=== PATIENT | male | born 1945 | race Caucasian/White ===

== ENCOUNTER → 2020-11-10 15:37 | Outpatient (CLI) | payer MEDICARE, OTHER, SELFPAY ==
[2020-11-10] MEDS: COVID-19 VACC #1, MRNA(MOD) 100 MCG/0.5 ML VIAL IM (15:43)
== END ==
PROVIDERS: Visit Provider Internal Medicine
DX: Z23 Encounter for immunization (principal)
CPT/HCPCS: 0011A; 91301

== ENCOUNTER → 2020-12-08 15:45 | Outpatient (CLI) | payer MEDICARE, OTHER, SELFPAY ==
[2020-12-08] MEDS: COVID-19 VACC #2, MRNA(MOD) 100 MCG/0.5 ML VIAL IM (15:59)
== END ==
PROVIDERS: Visit Provider Internal Medicine
DX: Z23 Encounter for immunization (principal)
CPT/HCPCS: 0012A; 91301

== ENCOUNTER → 2021-11-27 12:41 | Outpatient (CLI) | payer MEDICARE, OTHER, SELFPAY ==
--- NOTE | 2021-11-27 12:48 | DI.RAD.S_ITS ---
PROCEDURE: XR ANKLE LT MIN 3V INDICATIONS: PAIN TECHNIQUE: 3 views of the ankle were acquired. COMPARISON: None. FINDINGS: Bones: No fractures or dislocations. Ankle mortise is normally aligned. No suspicious bony lesions. Periarticular osteophyte formation at the tibiotalar, talonavicular, and navicular cuneiform joints. Soft tissues: No tibiotalar joint effusion. Achilles tendon appears normal. IMPRESSION: Osteoarthritis. No acute fracture. No osseous lesion. If symptoms and/or clinical suspicion for pathology persist, further assessment with repeat, or advanced imaging (e.g., CT, MRI, or bone scan) may be helpful for further assessment. Dictated by: Raf Vela M.D. on 11/27/2021 at 14:13 Approved by: Raf Vela M.D. on 11/27/2021 at 14:13
--- NOTE | 2021-11-27 12:48 | DI.RAD.S_ITS ---
PROCEDURE: XR FOOT RT MIN 3V INDICATIONS: FOOT PAIN TECHNIQUE: 3 views of the foot were acquired. COMPARISON: [facility], CR, XR FOOT 3+ VIEWS RIGHT, 03/30/2019, 11:04. [facility], CR, XR ANKLE RT MIN 3V, 11/27/2021, 12:44. FINDINGS: Bones: No acute fractures or dislocations. No suspicious bony lesions. Pes planus. There is ossification of the distal tibial fibular syndesmosis. Idaj-nl-favsbmut degenerative joint disease at the tailor navicular joint, navicular cuneiform joint, 1st metatarsophalangeal joint and multiple interphalangeal joint. Calcaneal spurring. Bipartite medial sesamoid. Soft tissues: No tibiotalar joint effusion. Achilles tendon appears normal. IMPRESSION: 1. Pes planus. 2. Srti-le-ugtvixwq degenerative joint disease. 3. Calcaneal spurring. Dictated by: Risa Lyon M.D. on 11/27/2021 at 16:19 Approved by: Risa Lyon M.D. on 11/27/2021 at 16:23
--- NOTE | 2021-11-27 12:48 | DI.RAD.S_ITS ---
PROCEDURE: XR ANKLE RT MIN 3V INDICATIONS: PAIN TECHNIQUE: 3 views of the ankle were acquired. COMPARISON: [facility], CR, XR ANKLE LT MIN 3V, 11/27/2021, 12:44. FINDINGS: Bones: No fractures or dislocations. Ankle mortise is normally aligned. No suspicious bony lesions. Periarticular osteophyte formation at the tibiotalar, talonavicular, and navicular cuneiform joints. Soft tissues: No tibiotalar joint effusion. Achilles tendon appears normal. IMPRESSION: Osteoarthritis. No acute fracture. No osseous lesion. If symptoms and/or clinical suspicion for pathology persist, further assessment with repeat, or advanced imaging (e.g., CT, MRI, or bone scan) may be helpful for further assessment. Dictated by: Raf Vela M.D. on 11/27/2021 at 14:15 Approved by: Raf Vela M.D. on 11/27/2021 at 14:15
--- NOTE | 2021-11-27 12:48 | DI.RAD.S_ITS ---
PROCEDURE: XR FOOT LT MIN 3V INDICATIONS: FOOT PAIN TECHNIQUE: 3 views of the foot were acquired. COMPARISON: [facility], , FOOT 3V LEFT, 06/16/2013, 13:22. FINDINGS: Bones: Pes planus. Calcaneal enthesopathy. No acute, displaced fracture. Mild to moderate arthrosis of the midfoot and hallux sesamoids. Soft tissues: Small tibiotalar joint effusion. IMPRESSION: No acute osseous abnormality. Dictated by: Rafael Perdue M.D. on 11/27/2021 at 14:21 Approved by: Rafael Perdue M.D. on 11/27/2021 at 14:23
== END ==
PROVIDERS: Referring Provider Internal Medicine; Visit Provider Internal Medicine
DX: M19.071 Primary osteoarthritis, right ankle and foot (principal); M19.072 Primary osteoarthritis, left ankle and foot; M77.31 Calcaneal spur, right foot; M77.32 Calcaneal spur, left foot; M21.42 Flat foot [pes planus] (acquired), left foot; M21.41 Flat foot [pes planus] (acquired), right foot; M79.671 Pain in right foot; M79.672 Pain in left foot
CPT/HCPCS: 73610; 73630

== ENCOUNTER 2022-05-12 09:14 | Emergency (ER) | payer MEDICARE, OTHER, SELFPAY ==
[2022-05-12] VITALS (64 sets, daily range): BP systolic 134–194; BP diastolic 64–115; PULSE 60–87; RESP 12–24; TEMP 36.5–36.6; O2SAT 95–100; BMI 35.6
--- NOTE | 2022-05-12 09:26 | DI.RAD.S_ITS ---
PROCEDURE: XR CHEST 1V INDICATIONS: chest pain TECHNIQUE: One view of the chest was acquired. COMPARISON: [facility], CHEST 2 VIEW, 12/17/2012, 10:54. [facility], CHEST 2 VIEW, 12/13/2013, 12:30. FINDINGS: Surgical changes and devices: None. Lungs and pleura: An incomplete inspiratory result is noted, causing a crowded appearance to the lung markings. No focal infiltrates are seen. No pneumothorax or significant pleural effusions are seen. Mediastinum: Mediastinal contours appear normal. Heart size is mildly enlarged. Bones and chest wall: No suspicious bony lesions. Age-appropriate bony degenerative changes are seen. Overlying soft tissues appear unremarkable. IMPRESSION: There is mild cardiomegaly. No significant pulmonary abnormality is seen. Dictated by: Zia Lindsey M.D. on 05/12/2022 at 9:03 Approved by: Zia Lindsey M.D. on 05/12/2022 at 9:03
[2022-05-12 09:36] LABS: Add Manual Diff / Slide Review NO; Basophils Absolute Auto 0 /uL (0-100); Basophils Percent Auto 0.5 % (0-2); Eosinophils Absolute Auto 100 /uL (0-450); Eosinophils Percent Auto 1.2 % (2-4); Hematocrit 45.1 % (41-53); Hemoglobin 15.3 g/dL (13.5-17.5); Lymphocytes Absolute Auto 2700 /uL (1100-4500); Lymphocytes Percent Auto 32.3 % (25-40); Mean Corpuscular HGB Conc 33.9 % (30-36); Mean Corpuscular Hemoglobin 34.2 PG (26-34); Mean Corpuscular Volume 100.7 fL (80-100); Monocytes Absolute Auto 900 /uL (0-900); Monocytes Percent Auto 10.4 % (3-14); Neutrophils Absolute Auto 4700 /uL (1500-7000); Neutrophils Percent Auto 55.6 % (50-75); Platelet Count 234 X10^3/uL (150-400); Red Blood Cell Count 4.47 X10^6/uL (4.5-5.9); Red Cell Distribution Width 12.9 % (11.6-14.8); White Blood Cell Count 8.4 X10^3/uL (4.5-11.0)
[2022-05-12 09:40] LABS: INR 1.1 (0.9-1.3); Prothrombin Time 11.8 SECONDS (10.1-12.7)
[2022-05-12 09:42] LABS: PTT Partial Thromboplastin Tim 35 SECONDS (26.4-36.2)
[2022-05-12 09:44] LABS: COVID19 -Nasal RAPID Negative (Negative)
[2022-05-12] MEDS: ASPIRIN 81 MG CHEW TAB 324 MG PO (09:44)
[2022-05-12 09:45] LABS: Alanine Aminotransferase 31 IU/L (<50); Albumin 4.6 g/dL (3.5-5.0); Albumin Globulin Ratio 1.6 (1.0-2.8); Alkaline Phosphatase 85 U/L (38-126); Aspartate Aminotransferase 27 IU/L (17-59); BUN Creatinine Ratio 20.2 (6-22); Bilirubin Total 0.9 mg/dL (0.2-1.3); Blood Urea Nitrogen 17 mg/dL (9-20); Calcium 9.1 mg/dL (8.4-10.2); Carbon Dioxide 21 mmol/L (22-32); Chloride 107 mmol/L (98-107); Creatine Kinase 61 U/L (55-170); Estimated Glomerular Filt Rate > 60 mL/min (>60); Globulin 2.8 g/dL (1.7-4.1); Glucose 174 mg/dL (80-110); HEMOLYSIS < 15 (0-50); Lipase 124 U/L (23-300); Potassium 3.9 mmol/L (3.4-5.1); Sodium 139 mmol/L (137-145); Total Protein 7.4 g/dL (6.3-8.2)
[2022-05-12 09:57] LABS: NT-proBNP (BNP-Adult 18+) 155 pg/mL (<125); Troponin I 0.105 ng/mL (0.01-0.034)
--- NOTE | 2022-05-12 10:06 | ED_ITS ---
HPI - Chest Pain <Kita Neumann DO - Last Filed: 05/13/22 08:31> General Chief Complaint: Chest Pain Stated Complaint: chest pain 20 mins Time Seen by Provider: 05/12/22 09:25 Source: patient Mode of arrival: Ambulatory Limitations: no limitations History of Present Illness HPI narrative: Patient is a 76-year-old male with no past medical history presenting today with chest discomfort. He said he was sitting when he developed heaviness on the left side of his chest he got extremely diaphoretic. Discomfort lasted for about 30 minutes. He realized in the car over here that if he put both hands on top of his head his chest pain went away immediately. He is now chest pain- free. He says he had a is physical exam is 9 months well as he takes no medications. No known coronary artery disease. He was not short of breath. Related Data Previous Rx's Medication Instructions Recorded mupirocin 2 % topical ointment 1 applic topical TID #15 grams 09/24/21 Allergies Allergy/AdvReac Type Severity Reaction Status Date / Time No Known Drug Allergies Allergy Verified 05/12/22 10:26 Review of Systems <Kita Neumann DO - Last Filed: 05/13/22 08:31> Review of Systems Narrative: GENERAL: Denies chills, fatigue, malaise, fever, sweats, travel HEENT: Denies sinus pain, ear pain, sore throat, difficulty swallowing, neck pain RESPIRATORY: Denies dyspnea, cough, wheezing, hemoptysis, sputum. CARDIOVASCULAR: See HPI GASTROINTESTINAL: Denies nausea, vomiting, abdominal pain, diarrhea, constipation, melena. : Denies dysuria, frequency, incontinence, hematuria, urinary retention, flank pain. MUSCULOSKELETAL: Denies weakness, joint pain, or bony pain SKIN: No rash, no erythema, no pruritus NEUROLOGIC: Denies weakness, dizziness, headache, numbness, change in speech, confusion PSYCHIATRIC: No concerning psychosocial issues. 12 point review of systems is negative except for those stated above and HPI Patient History <Kita Neumann DO - Last Filed: 05/13/22 08:31> Social History Smoking Status: Never smoker alcohol intake: current Smoking Status: Never smoker alcohol intake frequency: 0-2 drinks per day Alcohol type: wine Substance Use Type: does not use Exam <Kita Neumann DO - Last Filed: 05/13/22 08:31> Initial Vital Signs Initial Vital Signs: Vital Signs Temperature 97.7 F 05/12/22 09:14 Pulse Rate 82 05/12/22 09:14 Respiratory Rate 20 05/12/22 09:14 Blood Pressure 184/89 H 05/12/22 09:14 Pulse Oximetry 97 05/12/22 09:14 Oxygen Delivery Method 05/12/22 09:14 GENERAL: Alert pleasant 76-year-old male and in no acute distress. HEENT: Head atraumatic,EOMI, pupils reactive, face symmetric, moist mucous membranes CARDIOVASCULAR: Regular rate and rhythm without murmurs, rubs or gallops. RESPIRATORY: Breath sounds equal bilaterally, no wheezes rales or rhonchi. ABDOMEN: Soft, nontender. Normoactive bowel sounds all 4 quadrants. No guarding or rebound. EXTREMITIES: Normal range of motion, no clubbing or edema. Neurovascularly intact NEUROLOGICAL: Alert and oriented x4.Normal gait and speech. SKIN: Warm, dry, no laceration, no petechiae, no rashes or lesions. <Isreal Silva DO - Last Filed: 05/12/22 22:51> Initial Vital Signs Initial Vital Signs: Vital Signs Temperature 97.7 F 05/12/22 09:14 Pulse Rate 82 05/12/22 09:14 Respiratory Rate 20 05/12/22 09:14 Blood Pressure 184/89 H 05/12/22 09:14 Pulse Oximetry 97 05/12/22 09:14 Oxygen Delivery Method 05/12/22 09:14 Course <DO Genevieve Carrasco Last Filed: 05/13/22 08:31> Orders Ordered: Discontinued Medications Aspirin (Aspirin 81 Mg Chew Tab) 324 mg PO NOW ONE Stop: 05/12/22 09:34 Last Admin: 05/12/22 09:44 Dose: 324 mg Documented By: BILL Aspirin (Aspirin 325 Mg Tablet) 325 mg PO DAILY [facility] Atorvastatin Calcium (Atorvastatin 20 Mg Tablet) 80 mg PO NOW ONE Stop: 05/12/22 12:22 Last Admin: 05/12/22 12:33 Dose: 80 mg Documented By: BILL Heparin Sodium (Porcine) (Heparin 5,000 Unit/Ml Vial) 5,000 unit IV NOW ONE Stop: 05/12/22 12:11 Last Admin: 05/12/22 12:25 Dose: 5,000 unit Documented By: BILL Heparin Sodium/Dextrose (Heparin Drip) 25,000 unit in 500 mls @ 20 mls/hr IV CONT [facility]; Protocol Last Titration: 05/12/22 23:34 Dose: 0 units/hr, 0 mls/hr Documented By: Admin: 05/12/22 12:25 Dose: 1,000 units/hr, 20 mls/hr Documented By: BILL Metoprolol Succinate (Metoprolol Er 25 Mg Tablet) 25 mg PO BID [facility] Last Admin: 05/12/22 21:01 Dose: 25 mg Documented By: DAKSHA Nitroglycerin (Nitroglycerin 0.4 Mg Sl Tab) 0.4 mg SL [id number] PRN PRN Reason: Chest Pain Vital Signs Vital signs: Vital Signs - 8 hr 05/12/22 14:45 05/12/22 14:45 05/12/22 15:00 Temperature Pulse Rate 64 Respiratory Rate 19 Blood Pressure 184/85 H 152/84 H Pulse Oximetry 98 Oxygen Delivery Method 05/12/22 15:00 05/12/22 15:16 05/12/22 15:16 Temperature Pulse Rate 67 70 Respiratory Rate 12 20 Blood Pressure 166/94 H Pulse Oximetry 98 98 Oxygen Delivery Method 05/12/22 15:30 05/12/22 15:30 05/12/22 15:45 Temperature Pulse Rate 72 72 Respiratory Rate 24 23 Blood Pressure 167/84 H Pulse Oximetry 98 98 Oxygen Delivery Method 05/12/22 15:45 05/12/22 16:00 05/12/22 16:00 Temperature Pulse Rate 69 Respiratory Rate 20 Blood Pressure 170/89 H 166/81 H Pulse Oximetry 97 Oxygen Delivery Method 05/12/22 16:15 05/12/22 16:15 05/12/22 16:30 Temperature Pulse Rate 66 71 Respiratory Rate 18 23 Blood Pressure 170/74 H Pulse Oximetry 98 97 Oxygen Delivery Method 05/12/22 16:31 05/12/22 16:31 05/12/22 17:00 Temperature Pulse Rate 69 87 Respiratory Rate 23 20 Blood Pressure 165/80 H Pulse Oximetry 98 96 Oxygen Delivery Method 05/12/22 17:13 05/12/22 17:13 05/12/22 17:16 Temperature Pulse Rate 73 Respiratory Rate 20 Blood Pressure 162/79 H 141/67 H Pulse Oximetry 97 Oxygen Delivery Method 05/12/22 17:16 05/12/22 17:30 05/12/22 17:31 Temperature Pulse Rate 75 73 69 Respiratory Rate 22 23 20 Blood Pressure Pulse Oximetry 96 97 97 Oxygen Delivery Method 05/12/22 17:31 05/12/22 17:46 05/12/22 17:46 Temperature Pulse Rate 74 Respiratory Rate 22 Blood Pressure 169/84 H 136/83 Pulse Oximetry 97 Oxygen Delivery Method 05/12/22 18:00 05/12/22 18:00 05/12/22 18:15 Temperature Pulse Rate 69 71 Respiratory Rate 22 24 Blood Pressure 143/82 H Pulse Oximetry 96 96 Oxygen Delivery Method 05/12/22 18:15 05/12/22 18:30 05/12/22 18:45 Temperature 97.9 F Pulse Rate 68 74 Respiratory Rate 24 22 Blood Pressure 151/87 H 159/85 H Pulse Oximetry 96 96 Oxygen Delivery Method Room Air 05/12/22 18:45 05/12/22 19:00 05/12/22 19:00 Temperature Pulse Rate 70 Respiratory Rate 20 Blood Pressure 161/87 H 167/85 H Pulse Oximetry 96 Oxygen Delivery Method 05/12/22 19:15 05/12/22 19:15 05/12/22 19:30 Temperature Pulse Rate 66 65 Respiratory Rate 18 12 Blood Pressure 161/85 H Pulse Oximetry 96 Oxygen Delivery Method 05/12/22 19:51 05/12/22 20:00 05/12/22 20:01 Temperature Pulse Rate 72 69 67 Respiratory Rate 12 16 22 Blood Pressure 165/81 H Pulse Oximetry 98 98 98 Oxygen Delivery Method Room Air 05/12/22 20:01 05/12/22 20:30 05/12/22 20:31 Temperature Pulse Rate 70 70 Respiratory Rate 22 24 Blood Pressure 134/67 165/75 H Pulse Oximetry 97 98 Oxygen Delivery Method Room Air 05/12/22 21:01 05/12/22 21:00 05/12/22 21:01 Temperature Pulse Rate 65 61 61 Respiratory Rate 21 17 Blood Pressure 152/115 H Pulse Oximetry 97 97 Oxygen Delivery Method 05/12/22 21:30 05/12/22 21:31 05/12/22 21:31 Temperature Pulse Rate 63 62 Respiratory Rate 15 17 Blood Pressure 137/64 Pulse Oximetry Oxygen Delivery Method 05/12/22 22:00 05/12/22 22:00 Temperature Pulse Rate 60 Respiratory Rate 18 Blood Pressure 142/103 H Pulse Oximetry Oxygen Delivery Method <Isreal Silva DO - Last Filed: 05/12/22 22:51> Orders Ordered: Discontinued Medications Aspirin (Aspirin 81 Mg Chew Tab) 324 mg PO NOW ONE Stop: 05/12/22 09:34 Last Admin: 05/12/22 09:44 Dose: 324 mg Documented By: BILL Aspirin (Aspirin 325 Mg Tablet) 325 mg PO DAILY [facility] Atorvastatin Calcium (Atorvastatin 20 Mg Tablet) 80 mg PO NOW ONE Stop: 05/12/22 12:22 Last Admin: 05/12/22 12:33 Dose: 80 mg Documented By: BILL Heparin Sodium (Porcine) (Heparin 5,000 Unit/Ml Vial) 5,000 unit IV NOW ONE Stop: 05/12/22 12:11 Last Admin: 05/12/22 12:25 Dose: 5,000 unit Documented By: BILL Heparin Sodium/Dextrose (Heparin Drip) 25,000 unit in 500 mls @ 20 mls/hr IV CONT [facility]; Protocol Last Titration: 05/12/22 23:34 Dose: 0 units/hr, 0 mls/hr Documented By: Admin: 05/12/22 12:25 Dose: 1,000 units/hr, 20 mls/hr Documented By: BILL Metoprolol Succinate (Metoprolol Er 25 Mg Tablet) 25 mg PO BID [facility] Last Admin: 05/12/22 21:01 Dose: 25 mg Documented By: DAKSHA Nitroglycerin (Nitroglycerin 0.4 Mg Sl Tab) 0.4 mg SL [id number] PRN PRN Reason: Chest Pain Vital Signs Vital signs: Vital Signs - 8 hr 05/12/22 14:45 05/12/22 14:45 05/12/22 15:00 Temperature Pulse Rate 64 Respiratory Rate 19 Blood Pressure 184/85 H 152/84 H Pulse Oximetry 98 Oxygen Delivery Method 05/12/22 15:00 05/12/22 15:16 05/12/22 15:16 Temperature Pulse Rate 67 70 Respiratory Rate 12 20 Blood Pressure 166/94 H Pulse Oximetry 98 98 Oxygen Delivery Method 05/12/22 15:30 05/12/22 15:30 05/12/22 15:45 Temperature Pulse Rate 72 72 Respiratory Rate 24 23 Blood Pressure 167/84 H Pulse Oximetry 98 98 Oxygen Delivery Method 05/12/22 15:45 05/12/22 16:00 05/12/22 16:00 Temperature Pulse Rate 69 Respiratory Rate 20 Blood Pressure 170/89 H 166/81 H Pulse Oximetry 97 Oxygen Delivery Method 05/12/22 16:15 05/12/22 16:15 05/12/22 16:30 Temperature Pulse Rate 66 71 Respiratory Rate 18 23 Blood Pressure 170/74 H Pulse Oximetry 98 97 Oxygen Delivery Method 05/12/22 16:31 05/12/22 16:31 05/12/22 17:00 Temperature Pulse Rate 69 87 Respiratory Rate 23 20 Blood Pressure 165/80 H Pulse Oximetry 98 96 Oxygen Delivery Method 05/12/22 17:13 05/12/22 17:13 05/12/22 17:16 Temperature Pulse Rate 73 Respiratory Rate 20 Blood Pressure 162/79 H 141/67 H Pulse Oximetry 97 Oxygen Delivery Method 05/12/22 17:16 05/12/22 17:30 05/12/22 17:31 Temperature Pulse Rate 75 73 69 Respiratory Rate 22 23 20 Blood Pressure Pulse Oximetry 96 97 97 Oxygen Delivery Method 05/12/22 17:31 05/12/22 17:46 05/12/22 17:46 Temperature Pulse Rate 74 Respiratory Rate 22 Blood Pressure 169/84 H 136/83 Pulse Oximetry 97 Oxygen Delivery Method 05/12/22 18:00 05/12/22 18:00 05/12/22 18:15 Temperature Pulse Rate 69 71 Respiratory Rate 22 24 Blood Pressure 143/82 H Pulse Oximetry 96 96 Oxygen Delivery Method 05/12/22 18:15 05/12/22 18:30 05/12/22 18:45 Temperature 97.9 F Pulse Rate 68 74 Respiratory Rate 24 22 Blood Pressure 151/87 H 159/85 H Pulse Oximetry 96 96 Oxygen Delivery Method Room Air 05/12/22 18:45 05/12/22 19:00 05/12/22 19:00 Temperature Pulse Rate 70 Respiratory Rate 20 Blood Pressure 161/87 H 167/85 H Pulse Oximetry 96 Oxygen Delivery Method 05/12/22 19:15 05/12/22 19:15 05/12/22 19:30 Temperature Pulse Rate 66 65 Respiratory Rate 18 12 Blood Pressure 161/85 H Pulse Oximetry 96 Oxygen Delivery Method 05/12/22 19:51 05/12/22 20:00 05/12/22 20:01 Temperature Pulse Rate 72 69 67 Respiratory Rate 12 16 22 Blood Pressure 165/81 H Pulse Oximetry 98 98 98 Oxygen Delivery Method Room Air 05/12/22 20:01 05/12/22 20:30 05/12/22 20:31 Temperature Pulse Rate 70 70 Respiratory Rate 22 24 Blood Pressure 134/67 165/75 H Pulse Oximetry 97 98 Oxygen Delivery Method Room Air 05/12/22 21:01 05/12/22 21:00 05/12/22 21:01 Temperature Pulse Rate 65 61 61 Respiratory Rate 21 17 Blood Pressure 152/115 H Pulse Oximetry 97 97 Oxygen Delivery Method 05/12/22 21:30 05/12/22 21:31 05/12/22 21:31 Temperature Pulse Rate 63 62 Respiratory Rate 15 17 Blood Pressure 137/64 Pulse Oximetry Oxygen Delivery Method 05/12/22 22:00 05/12/22 22:00 Temperature Pulse Rate 60 Respiratory Rate 18 Blood Pressure 142/103 H Pulse Oximetry Oxygen Delivery Method MDM - Chest Pain <Kita Neumann, DO - Last Filed: 05/13/22 08:31> Lab Data Result diagrams: 05/12/22 09:23 05/12/22 09:23 Labs: Lab Results 05/12/22 05/12/22 05/12/22 Range/Units 09:23 09:23 09:23 WBC 8.4 (4.5-11.0) X10^3/uL RBC 4.47 L (4.5-5.9) X10^6/uL Hgb 15.3 (13.5-17.5) g/dL Hct 45.1 (41-53) % MCV 100.7 H (80-100) fL MCH 34.2 H (26-34) PG MCHC 33.9 (30-36) % RDW 12.9 (11.6-14.8) % Plt Count 234 (150-400) X10^3/uL Neut % (Auto) 55.6 (50-75) % Lymph % (Auto) 32.3 (25-40) % [place] % (Auto) 10.4 (3-14) % Eos % (Auto) 1.2 L (2-4) % Baso % (Auto) 0.5 (0-2) % Neut # (Auto) 4700 (5249-6674) /uL Lymph # (Auto) 2700 (9834-6158) /uL [place] # (Auto) 900 (0-900) /uL Eos # (Auto) 100 (0-450) /uL Baso # (Auto) 0 (0-100) /uL PT 11.8 (10.1-12.7) SECONDS INR 1.1 (0.9-1.3) APTT 35 (26.4-36.2) SECONDS Sodium 139 (137-145) mmol/L Potassium 3.9 (3.4-5.1) mmol/L Chloride 107 (98-107) mmol/L Carbon Dioxide 21 L (22-32) mmol/L BUN 17 (9-20) mg/dL Creatinine 0.84 (0.66-1.25) mg/dL Estimated GFR > 60 (>60) mL/min BUN/Creatinine Ratio 20.2 (6-22) Glucose 174 H (80-110) mg/dL Calcium 9.1 (8.4-10.2) mg/dL Total Bilirubin 0.9 (0.2-1.3) mg/dL AST 27 (17-59) IU/L ALT 31 (<50) IU/L Alkaline Phosphatase 85 (38-126) U/L Total Creatine Kinase 61 (55-170) U/L CK-MB (CK-2) TNP CK-MB (CK-2) Rel Index TNP Troponin I 0.105 H (0.01-0.034) ng/mL NT-Pro-B Natriuret Pep 155 H (<125) pg/mL Total Protein 7.4 (6.3-8.2) g/dL Albumin 4.6 (3.5-5.0) g/dL Globulin 2.8 (1.7-4.1) g/dL Albumin/Globulin Ratio 1.6 (1.0-2.8) Lipase 124 (23-300) U/L Urine Color Urine Appearance Urine pH (4.5-8.0) Ur Specific [place] (1.000-1.035) Urine Protein (Negative) Urine Glucose (UA) (Negative) g/dL Urine Ketones (NEGATIVE) Urine Occult Blood (Negative) Urine Nitrate (Negative) Urine Bilirubin (NEGATIVE) Urine Urobilinogen (0.2) E.U./dL Ur Leukocyte Esterase (NEGATIVE) Urine RBC (0-5/HPF) Urine WBC (0-5/HPF) Urine Bacteria (None) Ur Culture Indicated? SARS-CoV-2 (PCR) (Negative) 05/12/22 05/12/22 05/12/22 Range/Units 09:23 09:23 10:53 WBC (4.5-11.0) X10^3/uL RBC (4.5-5.9) X10^6/uL Hgb (13.5-17.5) g/dL Hct (41-53) % MCV (80-100) fL MCH (26-34) PG MCHC (30-36) % RDW (11.6-14.8) % Plt Count (150-400) X10^3/uL Neut % (Auto) (50-75) % Lymph % (Auto) (25-40) % [place] % (Auto) (3-14) % Eos % (Auto) (2-4) % Baso % (Auto) (0-2) % Neut # (Auto) (3487-0894) /uL Lymph # (Auto) (6356-3533) /uL [place] # (Auto) (0-900) /uL Eos # (Auto) (0-450) /uL Baso # (Auto) (0-100) /uL PT (10.1-12.7) SECONDS INR (0.9-1.3) APTT (26.4-36.2) SECONDS Sodium (137-145) mmol/L Potassium (3.4-5.1) mmol/L Chloride (98-107) mmol/L Carbon Dioxide (22-32) mmol/L BUN (9-20) mg/dL Creatinine (0.66-1.25) mg/dL Estimated GFR (>60) mL/min BUN/Creatinine Ratio (6-22) Glucose (80-110) mg/dL Calcium (8.4-10.2) mg/dL Total Bilirubin (0.2-1.3) mg/dL AST (17-59) IU/L ALT (<50) IU/L Alkaline Phosphatase (38-126) U/L Total Creatine Kinase (55-170) U/L CK-MB (CK-2) CK-MB (CK-2) Rel Index Troponin I (0.01-0.034) ng/mL NT-Pro-B Natriuret Pep 160 H (<125) pg/mL Total Protein (6.3-8.2) g/dL Albumin (3.5-5.0) g/dL Globulin (1.7-4.1) g/dL Albumin/Globulin Ratio (1.0-2.8) Lipase (23-300) U/L Urine Color Yellow Urine Appearance Clear Urine pH 6.5 (4.5-8.0) Ur Specific [place] 1.020 (1.000-1.035) Urine Protein Negative (Negative) Urine Glucose (UA) Negative (Negative) g/dL Urine Ketones Negative (NEGATIVE) Urine Occult Blood 3+ H (Negative) Urine Nitrate Negative (Negative) Urine Bilirubin Negative (NEGATIVE) Urine Urobilinogen 0.2 (0.2) E.U./dL Ur Leukocyte Esterase Negative (NEGATIVE) Urine RBC 5-10/hpf H (0-5/HPF) Urine WBC None seen (0-5/HPF) Urine Bacteria None seen (None) Ur Culture Indicated? Cult not indicated SARS-CoV-2 (PCR) Negative (Negative) 05/12/22 05/12/22 05/12/22 Range/Units 11:23 15:00 18:30 WBC (4.5-11.0) X10^3/uL RBC (4.5-5.9) X10^6/uL Hgb (13.5-17.5) g/dL Hct (41-53) % MCV (80-100) fL MCH (26-34) PG MCHC (30-36) % RDW (11.6-14.8) % Plt Count (150-400) X10^3/uL Neut % (Auto) (50-75) % Lymph % (Auto) (25-40) % [place] % (Auto) (3-14) % Eos % (Auto) (2-4) % Baso % (Auto) (0-2) % Neut # (Auto) (2791-1938) /uL Lymph # (Auto) (3414-0744) /uL [place] # (Auto) (0-900) /uL Eos # (Auto) (0-450) /uL Baso # (Auto) (0-100) /uL PT (10.1-12.7) SECONDS INR (0.9-1.3) APTT 57 H D (26.4-36.2) SECONDS Sodium (137-145) mmol/L Potassium (3.4-5.1) mmol/L Chloride (98-107) mmol/L Carbon Dioxide (22-32) mmol/L BUN (9-20) mg/dL Creatinine (0.66-1.25) mg/dL Estimated GFR (>60) mL/min BUN/Creatinine Ratio (6-22) Glucose (80-110) mg/dL Calcium (8.4-10.2) mg/dL Total Bilirubin (0.2-1.3) mg/dL AST (17-59) IU/L ALT (<50) IU/L Alkaline Phosphatase (38-126) U/L Total Creatine Kinase (55-170) U/L CK-MB (CK-2) CK-MB (CK-2) Rel Index Troponin I 0.283 H* 0.916 H* (0.01-0.034) ng/mL NT-Pro-B Natriuret Pep (<125) pg/mL Total Protein (6.3-8.2) g/dL Albumin (3.5-5.0) g/dL Globulin (1.7-4.1) g/dL Albumin/Globulin Ratio (1.0-2.8) Lipase (23-300) U/L Urine Color Urine Appearance Urine pH (4.5-8.0) Ur Specific [place] (1.000-1.035) Urine Protein (Negative) Urine Glucose (UA) (Negative) g/dL Urine Ketones (NEGATIVE) Urine Occult Blood (Negative) Urine Nitrate (Negative) Urine Bilirubin (NEGATIVE) Urine Urobilinogen (0.2) E.U./dL Ur Leukocyte Esterase (NEGATIVE) Urine RBC (0-5/HPF) Urine WBC (0-5/HPF) Urine Bacteria (None) Ur Culture Indicated? SARS-CoV-2 (PCR) (Negative) 05/12/22 Range/Units 20:57 WBC (4.5-11.0) X10^3/uL RBC (4.5-5.9) X10^6/uL Hgb (13.5-17.5) g/dL Hct (41-53) % MCV (80-100) fL MCH (26-34) PG MCHC (30-36) % RDW (11.6-14.8) % Plt Count (150-400) X10^3/uL Neut % (Auto) (50-75) % Lymph % (Auto) (25-40) % [place] % (Auto) (3-14) % Eos % (Auto) (2-4) % Baso % (Auto) (0-2) % Neut # (Auto) (8851-7757) /uL Lymph # (Auto) (7782-5135) /uL [place] # (Auto) (0-900) /uL Eos # (Auto) (0-450) /uL Baso # (Auto) (0-100) /uL PT (10.1-12.7) SECONDS INR (0.9-1.3) APTT (26.4-36.2) SECONDS Sodium (137-145) mmol/L Potassium (3.4-5.1) mmol/L Chloride (98-107) mmol/L Carbon Dioxide (22-32) mmol/L BUN (9-20) mg/dL Creatinine (0.66-1.25) mg/dL Estimated GFR (>60) mL/min BUN/Creatinine Ratio (6-22) Glucose (80-110) mg/dL Calcium (8.4-10.2) mg/dL Total Bilirubin (0.2-1.3) mg/dL AST (17-59) IU/L ALT (<50) IU/L Alkaline Phosphatase (38-126) U/L Total Creatine Kinase (55-170) U/L CK-MB (CK-2) CK-MB (CK-2) Rel Index Troponin I 1.600 H* (0.01-0.034) ng/mL NT-Pro-B Natriuret Pep (<125) pg/mL Total Protein (6.3-8.2) g/dL Albumin (3.5-5.0) g/dL Globulin (1.7-4.1) g/dL Albumin/Globulin Ratio (1.0-2.8) Lipase (23-300) U/L Urine Color Urine Appearance Urine pH (4.5-8.0) Ur Specific [place] (1.000-1.035) Urine Protein (Negative) Urine Glucose (UA) (Negative) g/dL Urine Ketones (NEGATIVE) Urine Occult Blood (Negative) Urine Nitrate (Negative) Urine Bilirubin (NEGATIVE) Urine Urobilinogen (0.2) E.U./dL Ur Leukocyte Esterase (NEGATIVE) Urine RBC (0-5/HPF) Urine WBC (0-5/HPF) Urine Bacteria (None) Ur Culture Indicated? SARS-CoV-2 (PCR) (Negative) Imaging Data Chest x-ray: Radiologist's Impression: PROCEDURE:? XR CHEST 1V ? INDICATIONS:? chest pain ? TECHNIQUE:? One view of the chest was acquired.? ? COMPARISON:? [facility], CHEST 2 VIEW, 12/17/2012, 10:54.? [facility], CHEST 2 VIEW, 12/13/2013, 12:30. ? FINDINGS:? ? Surgical changes and devices:? None.? ? Lungs and pleura:? An incomplete inspiratory result is noted, causing a crowded appearance to the lung markings.? No focal infiltrates are seen.? No pneumothorax or significant pleural effusions are seen. ? ? Mediastinum:? Mediastinal contours appear normal.? Heart size is mildly enlarged.? ? Bones and chest wall:? No suspicious bony lesions.? Age-appropriate bony degenerative changes are seen.? Overlying soft tissues appear unremarkable.? ? IMPRESSION:? ? There is mild cardiomegaly. ? No significant pulmonary abnormality is seen.? ? ? Dictated by: Zia Lindsey M.D. on 05/12/2022 at 9:03 ? ? Approved by: Zia Lindsey M.D. on 05/12/2022 at 9:03 ? ECG Data Interpretation: EKG 1. Normal sinus rhythm rate 86 SD interval 168 QRS [address] changes it do not see any T-wave inversions no priors to compare EKG 2. Sinus rhythm rate 61 SD interval 208 QRS [address] changes MDM Narrative Medical decision making narrative: Patient's story is certainly convincing for acute coronary syndrome. No EKG changes and initially chest pain has resolved completely while in the ED. 1st troponin is just shy of being positive. He is given aspirin. Patient's retreat from troponin is positive continues to rise. Heparin was started. He actually remains completely chest pain-free no need for nitroglycerin at this time. No EKG changes. No need for emergent transport. However there is critical bed shortage patient is on many hospitalist. I discussed case with hospitalist Dr. Faulkner who recommended continuing try to transfer patient due to rising troponin. <Isreal Silva, DO - Last Filed: 05/12/22 22:51> Lab Data Labs: Lab Results 05/12/22 05/12/22 05/12/22 Range/Units 09:23 09:23 09:23 WBC 8.4 (4.5-11.0) X10^3/uL RBC 4.47 L (4.5-5.9) X10^6/uL Hgb 15.3 (13.5-17.5) g/dL Hct 45.1 (41-53) % MCV 100.7 H (80-100) fL MCH 34.2 H (26-34) PG MCHC 33.9 (30-36) % RDW 12.9 (11.6-14.8) % Plt Count 234 (150-400) X10^3/uL Neut % (Auto) 55.6 (50-75) % Lymph % (Auto) 32.3 (25-40) % [place] % (Auto) 10.4 (3-14) % Eos % (Auto) 1.2 L (2-4) % Baso % (Auto) 0.5 (0-2) % Neut # (Auto) 4700 (3214-3331) /uL Lymph # (Auto) 2700 (6453-7006) /uL [place] # (Auto) 900 (0-900) /uL Eos # (Auto) 100 (0-450) /uL Baso # (Auto) 0 (0-100) /uL PT 11.8 (10.1-12.7) SECONDS INR 1.1 (0.9-1.3) APTT 35 (26.4-36.2) SECONDS Sodium 139 (137-145) mmol/L Potassium 3.9 (3.4-5.1) mmol/L Chloride 107 (98-107) mmol/L Carbon Dioxide 21 L (22-32) mmol/L BUN 17 (9-20) mg/dL Creatinine 0.84 (0.66-1.25) mg/dL Estimated GFR > 60 (>60) mL/min BUN/Creatinine Ratio 20.2 (6-22) Glucose 174 H (80-110) mg/dL Calcium 9.1 (8.4-10.2) mg/dL Total Bilirubin 0.9 (0.2-1.3) mg/dL AST 27 (17-59) IU/L ALT 31 (<50) IU/L Alkaline Phosphatase 85 (38-126) U/L Total Creatine Kinase 61 (55-170) U/L CK-MB (CK-2) TNP CK-MB (CK-2) Rel Index TNP Troponin I 0.105 H (0.01-0.034) ng/mL NT-Pro-B Natriuret Pep 155 H (<125) pg/mL Total Protein 7.4 (6.3-8.2) g/dL Albumin 4.6 (3.5-5.0) g/dL Globulin 2.8 (1.7-4.1) g/dL Albumin/Globulin Ratio 1.6 (1.0-2.8) Lipase 124 (23-300) U/L Urine Color Urine Appearance Urine pH (4.5-8.0) Ur Specific [place] (1.000-1.035) Urine Protein (Negative) Urine Glucose (UA) (Negative) g/dL Urine Ketones (NEGATIVE) Urine Occult Blood (Negative) Urine Nitrate (Negative) Urine Bilirubin (NEGATIVE) Urine Urobilinogen (0.2) E.U./dL Ur Leukocyte Esterase (NEGATIVE) Urine RBC (0-5/HPF) Urine WBC (0-5/HPF) Urine Bacteria (None) Ur Culture Indicated? SARS-CoV-2 (PCR) (Negative) 05/12/22 05/12/22 05/12/22 Range/Units 09:23 09:23 10:53 WBC (4.5-11.0) X10^3/uL RBC (4.5-5.9) X10^6/uL Hgb (13.5-17.5) g/dL Hct (41-53) % MCV (80-100) fL MCH (26-34) PG MCHC (30-36) % RDW (11.6-14.8) % Plt Count (150-400) X10^3/uL Neut % (Auto) (50-75) % Lymph % (Auto) (25-40) % [place] % (Auto) (3-14) % Eos % (Auto) (2-4) % Baso % (Auto) (0-2) % Neut # (Auto) (4047-7178) /uL Lymph # (Auto) (8868-3156) /uL [place] # (Auto) (0-900) /uL Eos # (Auto) (0-450) /uL Baso # (Auto) (0-100) /uL PT (10.1-12.7) SECONDS INR (0.9-1.3) APTT (26.4-36.2) SECONDS Sodium (137-145) mmol/L Potassium (3.4-5.1) mmol/L Chloride (98-107) mmol/L Carbon Dioxide (22-32) mmol/L BUN (9-20) mg/dL Creatinine (0.66-1.25) mg/dL Estimated GFR (>60) mL/min BUN/Creatinine Ratio (6-22) Glucose (80-110) mg/dL Calcium (8.4-10.2) mg/dL Total Bilirubin (0.2-1.3) mg/dL AST (17-59) IU/L ALT (<50) IU/L Alkaline Phosphatase (38-126) U/L Total Creatine Kinase (55-170) U/L CK-MB (CK-2) CK-MB (CK-2) Rel Index Troponin I (0.01-0.034) ng/mL NT-Pro-B Natriuret Pep 160 H (<125) pg/mL Total Protein (6.3-8.2) g/dL Albumin (3.5-5.0) g/dL Globulin (1.7-4.1) g/dL Albumin/Globulin Ratio (1.0-2.8) Lipase (23-300) U/L Urine Color Yellow Urine Appearance Clear Urine pH 6.5 (4.5-8.0) Ur Specific [place] 1.020 (1.000-1.035) Urine Protein Negative (Negative) Urine Glucose (UA) Negative (Negative) g/dL Urine Ketones Negative (NEGATIVE) Urine Occult Blood 3+ H (Negative) Urine Nitrate Negative (Negative) Urine Bilirubin Negative (NEGATIVE) Urine Urobilinogen 0.2 (0.2) E.U./dL Ur Leukocyte Esterase Negative (NEGATIVE) Urine RBC 5-10/hpf H (0-5/HPF) Urine WBC None seen (0-5/HPF) Urine Bacteria None seen (None) Ur Culture Indicated? Cult not indicated SARS-CoV-2 (PCR) Negative (Negative) 05/12/22 05/12/22 05/12/22 Range/Units 11:23 15:00 18:30 WBC (4.5-11.0) X10^3/uL RBC (4.5-5.9) X10^6/uL Hgb (13.5-17.5) g/dL Hct (41-53) % MCV (80-100) fL MCH (26-34) PG MCHC (30-36) % RDW (11.6-14.8) % Plt Count (150-400) X10^3/uL Neut % (Auto) (50-75) % Lymph % (Auto) (25-40) % [place] % (Auto) (3-14) % Eos % (Auto) (2-4) % Baso % (Auto) (0-2) % Neut # (Auto) (7478-4336) /uL Lymph # (Auto) (7702-3871) /uL [place] # (Auto) (0-900) /uL Eos # (Auto) (0-450) /uL Baso # (Auto) (0-100) /uL PT (10.1-12.7) SECONDS INR (0.9-1.3) APTT 57 H D (26.4-36.2) SECONDS Sodium (137-145) mmol/L Potassium (3.4-5.1) mmol/L Chloride (98-107) mmol/L Carbon Dioxide (22-32) mmol/L BUN (9-20) mg/dL Creatinine (0.66-1.25) mg/dL Estimated GFR (>60) mL/min BUN/Creatinine Ratio (6-22) Glucose (80-110) mg/dL Calcium (8.4-10.2) mg/dL Total Bilirubin (0.2-1.3) mg/dL AST (17-59) IU/L ALT (<50) IU/L Alkaline Phosphatase (38-126) U/L Total Creatine Kinase (55-170) U/L CK-MB (CK-2) CK-MB (CK-2) Rel Index Troponin I 0.283 H* 0.916 H* (0.01-0.034) ng/mL NT-Pro-B Natriuret Pep (<125) pg/mL Total Protein (6.3-8.2) g/dL Albumin (3.5-5.0) g/dL Globulin (1.7-4.1) g/dL Albumin/Globulin Ratio (1.0-2.8) Lipase (23-300) U/L Urine Color Urine Appearance Urine pH (4.5-8.0) Ur Specific [place] (1.000-1.035) Urine Protein (Negative) Urine Glucose (UA) (Negative) g/dL Urine Ketones (NEGATIVE) Urine Occult Blood (Negative) Urine Nitrate (Negative) Urine Bilirubin (NEGATIVE) Urine Urobilinogen (0.2) E.U./dL Ur Leukocyte Esterase (NEGATIVE) Urine RBC (0-5/HPF) Urine WBC (0-5/HPF) Urine Bacteria (None) Ur Culture Indicated? SARS-CoV-2 (PCR) (Negative) 05/12/22 Range/Units 20:57 WBC (4.5-11.0) X10^3/uL RBC (4.5-5.9) X10^6/uL Hgb (13.5-17.5) g/dL Hct (41-53) % MCV (80-100) fL MCH (26-34) PG MCHC (30-36) % RDW (11.6-14.8) % Plt Count (150-400) X10^3/uL Neut % (Auto) (50-75) % Lymph % (Auto) (25-40) % [place] % (Auto) (3-14) % Eos % (Auto) (2-4) % Baso % (Auto) (0-2) % Neut # (Auto) (8455-0481) /uL Lymph # (Auto) (2541-3281) /uL [place] # (Auto) (0-900) /uL Eos # (Auto) (0-450) /uL Baso # (Auto) (0-100) /uL PT (10.1-12.7) SECONDS INR (0.9-1.3) APTT (26.4-36.2) SECONDS Sodium (137-145) mmol/L Potassium (3.4-5.1) mmol/L Chloride (98-107) mmol/L Carbon Dioxide (22-32) mmol/L BUN (9-20) mg/dL Creatinine (0.66-1.25) mg/dL Estimated GFR (>60) mL/min BUN/Creatinine Ratio (6-22) Glucose (80-110) mg/dL Calcium (8.4-10.2) mg/dL Total Bilirubin (0.2-1.3) mg/dL AST (17-59) IU/L ALT (<50) IU/L Alkaline Phosphatase (38-126) U/L Total Creatine Kinase (55-170) U/L CK-MB (CK-2) CK-MB (CK-2) Rel Index Troponin I 1.600 H* (0.01-0.034) ng/mL NT-Pro-B Natriuret Pep (<125) pg/mL Total Protein (6.3-8.2) g/dL Albumin (3.5-5.0) g/dL Globulin (1.7-4.1) g/dL Albumin/Globulin Ratio (1.0-2.8) Lipase (23-300) U/L Urine Color Urine Appearance Urine pH (4.5-8.0) Ur Specific [place] (1.000-1.035) Urine Protein (Negative) Urine Glucose (UA) (Negative) g/dL Urine Ketones (NEGATIVE) Urine Occult Blood (Negative) Urine Nitrate (Negative) Urine Bilirubin (NEGATIVE) Urine Urobilinogen (0.2) E.U./dL Ur Leukocyte Esterase (NEGATIVE) Urine RBC (0-5/HPF) Urine WBC (0-5/HPF) Urine Bacteria (None) Ur Culture Indicated? SARS-CoV-2 (PCR) (Negative) [facility] Narrative Medical decision making narrative: Patient's story is certainly convincing for acute coronary syndrome. No EKG changes and initially chest pain has resolved completely while in the ED. 1st troponin is just shy of being positive. He is given aspirin. Patient's retreat from troponin is positive continues to rise. Heparin was started. He actually remains completely chest pain-free no need for nitroglycerin at this time. No EKG changes. No need for emergent transport. However there is critical bed shortage patient is on many hospitalist. I discussed case with hospitalist Dr. Faulkner who recommended continuing try to transfer patient due to rising troponin. [1800] (Ricardo) Patient received in sign out from [Nel]. I have reviewed the clinical course and performed an independent history and physical exam. Still working on placement. Patient continues to be pain free [id number] - I have now spoken with Dr. Gotti (Cardiology at [facility]) who is happy to play a role in consultation and hospitalist Dr. Montaño is happy to accept. <Isreal Ricardo, DO - Last Filed: 05/12/22 22:51> Critical Care Time Critical Care Time: Yes Total Critical Care Time: 35 Attestation: The high probability of a clinically significant, sudden or life threatening deterioration of the [CV] system(s) required my full and direct attention, intervention and personal management. The aggregate critical care time was [35] minutes. This time is in addition to time spent performing reported procedures but includes the following: [x] Data Review and interpretation [x] Patient assessment and monitoring of vital signs [x] Documentation [x] Medication orders and management Discharge Plan Departure Patient Disposition: [facility] Clinical Impression: Non-ST elevation NH (NSTEMI) Prescriptions: No Action mupirocin 2 % ointment 1 applic topical TID Qty: 15 0RF Referrals: Lew Rocha MD [Primary Care Provider] -
[2022-05-12 12:04] LABS: Troponin I 0.283 ng/mL (0.01-0.034)
[2022-05-12] MEDS: HEPARIN DRIP 25,000 UNIT/500 ML IV.SOLN 20 UNIT IV (12:25)
[2022-05-12] MEDS: HEPARIN 5,000 UNIT/ML VIAL 5000 UNIT IV (12:25)
[2022-05-12] MEDS: ATORVASTATIN 20 MG TABLET 80 MG PO (12:33)
[2022-05-12 13:22] LABS: Appearance Urine UA CLEAR; Bilirubin Urine UA NEGATIVE (NEGATIVE); Color Urine UA YELLOW; Glucose Urine UA NEGATIVE (Negative); Ketones Urine UA NEGATIVE (NEGATIVE); Leukocyte Esterase Urine UA NEGATIVE (NEGATIVE); Nitrite Urine UA NEGATIVE (Negative); Occult Blood Urine UA 3+ (Negative); Protein Urine UA NEGATIVE (Negative); Urobilinogen Urine UA 0.2 E.U./dL (0.2); pH Urine UA 6.5 (4.5-8.0)
[2022-05-12 13:30] LABS: Bacteria Urine None Seen; Culture Indicated Urine Cult Not Indicated; RBC Urine 5-10/HPF (0-5/HPF); WBC Urine None Seen (0-5/HPF)
[2022-05-12 15:31] LABS: Troponin I 0.916 ng/mL (0.01-0.034)
--- NOTE | 2022-05-12 15:33 | PC.NURSE ---
I was asked by Dr. Neumann to place this patient on the transfer list of hospitals. I placed the patient on the transfer list for [facility], [facility] and [facility]. I tried to place this patient on the list as [facility] and [facility] and was declined to add this patient to their list.
[2022-05-12 17:54] LABS: NT-proBNP (BNP-Adult 18+) 160 pg/mL (<125)
[2022-05-12 19:10] LABS: PTT Partial Thromboplastin Tim 57 SECONDS (26.4-36.2)
--- NOTE | 2022-05-12 19:25 | PC.NURSE ---
Pt's 1814 PTT result is 57 which per policy is within the window of needing no change to pt's heparin drip. This RN verified that pt is receiving correct dose and rate of heparin. Pt continues to deny CP.
[2022-05-12] MEDS: METOPROLOL ER 25 MG TABLET PO (21:01)
--- NOTE | 2022-05-12 23:10 | PC.NURSE ---
Notified of patients transfer to [facility]
== END 2022-05-12 23:32 | disposition short-term general hospital (02) ==
PROVIDERS: Emergency Medicine; Emergency Provider Emergency Medicine; PCP Internal Medicine
DX: I21.4 Non-ST elevation (NSTEMI) myocardial infarction (principal); Z20.822 Contact with and (suspected) exposure to COVID-19
CPT/HCPCS: 36415; 71045; 80053; 81001; 82550; 83690; 83880; 84484; 85025; 85610; 85730; 87635; 93005; 96365; 96366; 96375; 99284; 99291; C9803; J1644

== ENCOUNTER → 2022-08-13 06:56 | Outpatient (CLI) | payer MEDICARE, OTHER, SELFPAY ==
[2022-08-13 07:41] LABS: Hemoglobin A1C% w Est Avg Glu 5.7 % (4.0-6.0)
[2022-08-13 07:50] LABS: Alanine Aminotransferase 43 IU/L (<50); Albumin 3.9 g/dL (3.5-5.0); Albumin Globulin Ratio 1.3 (1.0-2.8); Alkaline Phosphatase 96 U/L (38-126); Aspartate Aminotransferase 31 IU/L (17-59); BUN Creatinine Ratio 23.5 (6-22); Bilirubin Total 0.8 mg/dL (0.2-1.3); Blood Urea Nitrogen 20 mg/dL (9-20); Calcium 8.9 mg/dL (8.4-10.2); Carbon Dioxide 23 mmol/L (22-32); Chloride 107 mmol/L (98-107); Cholesterol 89 mg/dL (140-199); Estimated Glomerular Filt Rate > 60 mL/min (>60); Globulin 2.9 g/dL (1.7-4.1); Glucose 111 mg/dL (80-110); HDL Cholesterol 38 mg/dL (40-60); HEMOLYSIS 20 (0-50); LDL Cholesterol Calculated 40 mg/dL (<100); Potassium 4.1 mmol/L (3.4-5.1); Sodium 140 mmol/L (137-145); Total Protein 6.8 g/dL (6.3-8.2); Triglycerides 57 mg/dL (35-150)
[2022-08-13 08:01] LABS: LDL Cholesterol Direct 36 mg/dL (<100)
== END ==
PROVIDERS: PCP Internal Medicine; Referring Provider Nurse Practitioner; Visit Provider Nurse Practitioner
DX: E78.5 Hyperlipidemia, unspecified (principal); I25.2 Old myocardial infarction
CPT/HCPCS: 36415; 80053; 80061; 83036; 83721

== ENCOUNTER 2022-10-17 10:15 | Outpatient (RCR) | payer MEDICARE, OTHER, SELFPAY | END 2022-10-17 12:15 | LOC: CAR 10:15 | PROVIDERS: PCP Internal Medicine; Referring Provider Internal Medicine Interventional Cardiology; Visit Provider Internal Medicine Interventional Cardiology | DX: Z95.5 Presence of coronary angioplasty implant and graft (principal) | CPT/HCPCS: 93798 ==

== ENCOUNTER → 2023-01-09 08:40 | Outpatient (CLI) | payer MEDICARE, OTHER, SELFPAY ==
[2023-01-09 10:28] LABS: Hemoglobin A1C% w Est Avg Glu 5.3 % (4.0-6.0)
[2023-01-09 10:46] LABS: Alanine Aminotransferase 28 IU/L (<50); Albumin Globulin Ratio 1.5 (1.0-2.8); Alkaline Phosphatase 85 U/L (38-126); Aspartate Aminotransferase 26 IU/L (17-59); Bilirubin Total 0.7 mg/dL (0.2-1.3); Blood Urea Nitrogen 23 mg/dL (9-20); Carbon Dioxide 24 mmol/L (22-32); Chloride 105 mmol/L (98-107); Cholesterol 164 mg/dL (140-199); Estimated Glomerular Filt Rate > 60 mL/min (>60); Globulin 2.7 g/dL (1.7-4.1); Glucose 101 mg/dL (80-110); HDL Cholesterol 58 mg/dL (40-60); HEMOLYSIS < 15 (0-50); LDL Cholesterol Calculated 94 mg/dL (<100); Potassium 4.2 mmol/L (3.4-5.1); Sodium 137 mmol/L (137-145); Total Protein 6.7 g/dL (6.3-8.2); Triglycerides 61 mg/dL (35-150)
== END ==
PROVIDERS: PCP Nurse Practitioner; Referring Provider Nurse Practitioner; Visit Provider Nurse Practitioner
DX: E11.9 Type 2 diabetes mellitus without complications (principal); E78.5 Hyperlipidemia, unspecified; I25.10 Atherosclerotic heart disease of native coronary artery without angina pectoris
CPT/HCPCS: 36415; 80053; 80061; 83036

== ENCOUNTER → 2024-03-12 09:39 | Outpatient (CLI) | payer MEDICARE, OTHER, SELFPAY ==
--- NOTE | 2024-03-12 09:40 | DI.RAD.S_ITS ---
PROCEDURE: XR CHEST 2V INDICATIONS: Productive cough, dyspnea TECHNIQUE: 2 views of the chest were acquired. COMPARISON: [facility], CR, XR CHEST 1V, 05/12/2022, 9:25. FINDINGS: Surgical changes and devices: None. Lungs and pleura: Lungs are clear. No pleural effusions or pneumothorax. Mediastinum: Mediastinal contours are normal. Heart size is normal. Bones and chest wall: No suspicious bony abnormalities. Soft tissues appear unremarkable. IMPRESSION: No acute cardiopulmonary abnormality is seen. Dictated by: Karthikeyan Khoury M.D. on 03/12/2024 at 11:10 Approved by: Karthikeyan Khoury M.D. on 03/12/2024 at 11:11
== END ==
PROVIDERS: PCP Nurse Practitioner; Referring Provider Physician Assistant Surgical; Visit Provider Physician Assistant Surgical
DX: R05.8 Other specified cough (principal); R06.00 Dyspnea, unspecified
CPT/HCPCS: 71046

== ENCOUNTER → 2024-03-14 13:42 | Outpatient (CLI) | payer MEDICARE, OTHER, SELFPAY | PROVIDERS: PCP Nurse Practitioner; Visit Provider Physician Assistant Surgical | DX: H92.10 Otorrhea, unspecified ear (principal); H57.89 Other specified disorders of eye and adnexa | CPT/HCPCS: 87070; 87077; 87185; 87205; 87252 ==

== ENCOUNTER → 2024-03-18 07:30 | Outpatient (CLI) | payer MEDICARE, OTHER, SELFPAY ==
[2024-03-18 08:15] LABS: COVID-19 CEPHEID 4-PLEX PCR Negative (Negative); Influenza A - CEPHEID Flu A NEGATIVE (NEGATIVE); Influenza B - CEPHEID Flu B NEGATIVE (NEGATIVE); Respiratory Syncytial Virus Negative (Negative)
== END ==
PROVIDERS: PCP Nurse Practitioner; Visit Provider Nurse Practitioner Family
DX: R05.1 Acute cough (principal)
CPT/HCPCS: 0241U

== ENCOUNTER → 2024-04-17 18:57 | Outpatient (ROUT) | payer MEDICARE, OTHER, SELFPAY | PROVIDERS: PCP Nurse Practitioner; Visit Provider Student in an Organized Health Care Education/Training Program | DX: F40.218 Other animal type phobia (principal) | CPT/HCPCS: 87169 ==

== ENCOUNTER → 2024-04-19 08:44 | Outpatient (CLI) | payer MEDICARE, OTHER, SELFPAY ==
[2024-04-19 12:02] LABS: Adenovirus F 40/41 Not Detected (Not Detect); Astrovirus Not Detected (Not Detect); Campylobacter Not Detected (Not Detect); Clostridium difficile toxin AB Not Detected (Not Detect); Cryptosporidium Not Detected (Not Detect); Cyclospora cayetanensis Not Detected (Not Detect); Entamoeba histolytica Not Detected (Not Detect); Enteroaggregative E.coli Not Detected (Not Detect); Enteropathogenic E.coli Not Detected (Not Detect); Enterotoxigenic E.coli It/st Not Detected (Not Detect); Giardia lamblia Not Detected (Not Detect); Norovirus GI/GII Not Detected (Not Detect); Plesiomonsa shigelloides Not Detected (Not Detect); Rotavirus A Not Detected (Not Detect); Salmonella Not Detected (Not Detect); Sapovirus Not Detected (Not Detect); Shiga-like toxin-prod E.coli Not Detected (Not Detect); Shigella/Enteroinvasive E.coli Not Detected (Not Detect); Vibrio Not Detected (Not Detect); Vibrio cholerae Not Detected (Not Detect); Yersinia enterocolitica Not Detected (Not Detect)
== END ==
PROVIDERS: PCP Internal Medicine; Referring Provider Student in an Organized Health Care Education/Training Program; Visit Provider Student in an Organized Health Care Education/Training Program
DX: B83.9 Helminthiasis, unspecified (principal)
CPT/HCPCS: 87177; 87507